=== PATIENT | female | born 1945 | race Caucasian/White ===

== ENCOUNTER 2016-10-14 04:47 | Day surgery (SDC) | payer MEDICARE, OTHER ==
[~2016-10-14 04:47] MED LIST: CALTRA600D PO; CEFT5 PO; CYANO1000T PO; DDAVP0.1 MG PO; FLAG500TAB PO; LYRICA50 PO; LYRICA75 PO; NEUR600 PO; NORCO1 TA1 PO; NORV25 PO; NORV5 PO; OS500+D PO; PRILO PO; PRILOSEC40 MG PO; PRIN10 PO; PRIN2.5 PO; PRIN5 PO; VITAMIN D31000 UNIT PO; Z300 PO
== END 2016-10-14 07:44 | disposition home or self-care (01) ==
LOC: SDC 04:47
PROVIDERS: Orthopaedic Surgery
PROC: 3E0S33Z Introduction of Anti-inflammatory into Epidural Space, Percutaneous Approach (ICD-10-PCS; principal; 2016-10-14 07:00)
DX: M54.16 Radiculopathy, lumbar region (principal); I10 Essential (primary) hypertension; M10.9 Gout, unspecified; M19.90 Unspecified osteoarthritis, unspecified site; K21.9 Gastro-esophageal reflux disease without esophagitis; Z90.710 Acquired absence of both cervix and uterus; Z96.659 Presence of unspecified artificial knee joint; Z98.41 Cataract extraction status, right eye; Z98.42 Cataract extraction status, left eye; Z98.890 Other specified postprocedural states; Z79.82 Long term (current) use of aspirin; Z79.899 Other long term (current) drug therapy; Z95.1 Presence of aortocoronary bypass graft; Z90.49 Acquired absence of other specified parts of digestive tract
CPT/HCPCS: J1040; J2250; J3010; Q9967